=== PATIENT | male | born 1980 | race African-American/Black ===

== ENCOUNTER 2020-06-08 09:36 | Emergency (ER) | payer MEDICAID ==
[~2020-06-08] VITALS: Ht 165.1 cm; Wt 67.5 kg
[2020-06-08] MEDS ORDERED: IBUPROFEN 600MG TABLET PO ONE (10:15)
[2020-06-08 11:24] VITALS: BP 122/74
== END 2020-06-08 11:25 | disposition home or self-care (01) ==
LOC: ER 09:36
DX: S62.391A Other fracture of second metacarpal bone, left hand, initial encounter for closed fracture (principal); X58.XXXA Exposure to other specified factors, initial encounter; Y93.89 Activity, other specified; Y92.89 Other specified places as the place of occurrence of the external cause; Y99.8 Other external cause status
CPT/HCPCS: 29125; 73130; 99283

== ENCOUNTER 2021-02-27 06:54 | Emergency (ER) | payer MEDICAID, OTHER ==
[~2021-02-27] VITALS: Ht 165.1 cm; Wt 68.0 kg
[2021-02-27] MEDS ORDERED: TETANUS, DIPHTHERIA, PERTUSSIS VAC/PF 0.5ML (>7YR OLD) IM ONE (07:45)
[2021-02-27] MEDS ORDERED: LIDOCAINE HCL/PF 1% 10 MG/ML 5ML VIAL IJ ONE (07:45)
[2021-02-27 09:03] VITALS: BP 113/76
== END 2021-02-27 09:11 | disposition home or self-care (01) ==
LOC: ER 06:54
DX: S02.2XXA Fracture of nasal bones, initial encounter for closed fracture (principal); S01.411A Laceration without foreign body of right cheek and temporomandibular area, initial encounter; V18.0XXA Pedal cycle driver injured in noncollision transport accident in nontraffic accident, initial encounter; Y93.89 Activity, other specified; Y92.488 Other paved roadways as the place of occurrence of the external cause; Z23 Encounter for immunization
CPT/HCPCS: 12011; 70486; 90471; 90715; 99284; A4217; J3490; Z7610

== ENCOUNTER 2021-03-10 10:07 | Emergency (ER) | payer OTHER ==
[~2021-03-10] VITALS: Ht 165.1 cm; Wt 66.0 kg
[2021-03-10 10:10] VITALS: BP 105/74
== END 2021-03-10 10:42 | disposition home or self-care (01) ==
LOC: ER 10:31
DX: S01.411D Laceration without foreign body of right cheek and temporomandibular area, subsequent encounter (principal); X58.XXXD Exposure to other specified factors, subsequent encounter
CPT/HCPCS: 99281; Z7610

== ENCOUNTER 2021-08-15 15:16 | Emergency (ER) | payer OTHER ==
[~2021-08-15] VITALS: Ht 175.3 cm; Wt 80.0 kg
[2021-08-15 15:19] VITALS: BP 150/94
== END 2021-08-15 15:59 | disposition left against medical advice (07) ==
LOC: ER 15:16
DX: Z53.21 Procedure and treatment not carried out due to patient leaving prior to being seen by health care provider (principal)

== ENCOUNTER 2022-04-08 22:18 | Emergency (ER) | payer OTHER ==
[~2022-04-08] VITALS: Ht 172.7 cm; Wt 73.0 kg
[2022-04-08 22:20] VITALS: BP 156/94
[2022-04-08] MEDS ORDERED: NALOXONE HCL 0.4 MG/ML 1ML VIAL IV PRN (22:30)
== END 2022-04-08 22:46 | disposition home or self-care (01) ==
LOC: ER 22:18
DX: T65.91XA Toxic effect of unspecified substance, accidental (unintentional), initial encounter (principal); F17.200 Nicotine dependence, unspecified, uncomplicated; F12.90 Cannabis use, unspecified, uncomplicated; F10.129 Alcohol abuse with intoxication, unspecified; F16.10 Hallucinogen abuse, uncomplicated; Y92.9 Unspecified place or not applicable; Y90.9 Presence of alcohol in blood, level not specified
CPT/HCPCS: 99283